=== PATIENT | female | born 1985 | race Asian ===

== ENCOUNTER 2016-07-16 13:05 | Inpatient (IN) | payer MEDICAID, SELFPAY ==
[~2016-07-16] VITALS: Ht 162.6 cm; Wt 56.7 kg
[2016-07-16] MEDS ORDERED: OXYTOCIN 20 UNITS/LR PREMIX 1,000 ML IV SCH (13:46)
[2016-07-16] MEDS ORDERED: LACTATED RINGERS 1,000 ML IV SCH (13:46)
[2016-07-16] MEDS ORDERED: PROMETHAZINE 25 MG/ML VIAL IVP PRN (13:50)
[2016-07-16] MEDS ORDERED: NALBUPHINE 10 MG/ML AMP IVP PRN (13:50)
[2016-07-16] MEDS ORDERED: IBUPROFEN 800 MG TAB PO PRN (13:50)
[2016-07-16] MEDS ORDERED: CARBOPROST 250 MCG/ML AMP IM PRN (13:50)
[2016-07-16] MEDS ORDERED: METHYLERGONOVINE 0.2 MG/ML AMP IM SCH (13:50)
[2016-07-16 14:00] VITALS: BP 111/71
[2016-07-16] MEDS ORDERED: OXYTOCIN 10 UNITS/ML VIAL IM SCH (14:00)
[2016-07-16] MEDS ORDERED: ROPIVACAINE 0.2%/NS PREMIX 250 ML EPI ONE (14:16)
[2016-07-16] MEDS ORDERED: PRENATAL VITAMI1 TA2 PO (14:16)
--- NOTE | 2016-07-16 14:39 | NUR ---
PATIENT HAS BEEN SCREENED AND CATEGORIZED LOW NUTRITION RISK. PATIENT WILL BE SEEN WITHIN 7 DAYS OF ADMISSION. 07/23/[address]
[2016-07-16] MEDS ORDERED: ROPIVACAINE 0.2%/NS PREMIX 250 ML EPI SCH (14:40)
[2016-07-16] MEDS ORDERED: OXYTOCIN 20 UNITS/LR PREMIX 1,000 ML IV ONE (15:46)
[2016-07-16] MEDS ORDERED: OXYTOCIN 10 UNITS/ML VIAL ONE (16:19)
[2016-07-16] MEDS ORDERED: BENZOCAINE/MENTHOL 20%-0.5% 60 GM CAN TP PRN (18:40)
[2016-07-16] MEDS ORDERED: METHYLERGONOVINE 0.2 MG/ML AMP IM PRN (18:40)
[2016-07-16] MEDS ORDERED: OXYTOCIN 10 UNITS/ML VIAL IM PRN (18:40)
[2016-07-16] MEDS ORDERED: MEASLES, MUMPS, AND RUBELLA 1 VIAL SQVAC PRN (18:40)
[2016-07-16] MEDS ORDERED: TEMAZEPAM 15 MG CAP PO PRN (18:40)
[2016-07-16] MEDS ORDERED: HYDROcodone/APAP 5/325 MG 1 TAB TAB PO PRN (18:40)
[2016-07-16] MEDS ORDERED: WITCH HAZEL 40 PAD PACKAGE TP PRN (18:40)
[2016-07-16] MEDS ORDERED: oxyCODONE/APAP 5/325 MG 1 TAB TAB PO PRN (18:40)
[2016-07-16] MEDS ORDERED: DOCUSATE SOD/SENNA 50/8.6 MG 1 TAB PO SCH (21:00)
[2016-07-17] MEDS: IBUPROFEN 800 MG TAB PO PRN ×2 (04:07→16:40)
[2016-07-17] MEDS ORDERED: INFLUENZA VIRUS VACCINE QUAD 0.5 ML SYR IMVAC SCH (21:45)
[2016-07-18] MEDS: IBUPROFEN 800 MG TAB PO PRN (08:20)
== END 2016-07-18 15:40 | disposition home or self-care (01) | DRG 775 ==
LOC: MLD 13:05 → MFCC 20:35
PROVIDERS: ADMIT Obstetrics & Gynecology; ATTEND Obstetrics & Gynecology
PROC: 10E0XZZ Delivery of Products of Conception, External Approach (ICD-10-PCS; principal; 2016-07-16)
PROC: 10907ZC Drainage of Amniotic Fluid, Therapeutic from Products of Conception, Via Natural or Artificial Opening (ICD-10-PCS; 2016-07-16)
PROC: 0W8NXZZ Division of Female Perineum, External Approach (ICD-10-PCS; 2016-07-16)
PROC: 00HU33Z Insertion of Infusion Device into Spinal Canal, Percutaneous Approach (ICD-10-PCS; 2016-07-16)
PROC: 3E0R3CZ (ICD-10-PCS; 2016-07-16)
PROC: 3E0234Z Introduction of Serum, Toxoid and Vaccine into Muscle, Percutaneous Approach (ICD-10-PCS; 2016-07-17)
DX: O69.81X0 Labor and delivery complicated by cord around neck, without compression, not applicable or unspecified (principal); O60.23X0 Term delivery with preterm labor, third trimester, not applicable or unspecified; Z3A.38 38 weeks gestation of pregnancy; Z37.0 Single live birth; Z23 Encounter for immunization